=== PATIENT | female | born 1990 | race African-American/Black ===

== ENCOUNTER 2018-01-13 13:38 | Emergency (ER) | payer SELFPAY ==
[~2018-01-13] VITALS: Ht 162.6 cm; Wt 73.0 kg
[2018-01-13 13:48] VITALS: BP 115/89
[2018-01-13] MEDS ORDERED: KETOROLAC 30MG/ML VIAL IV ONE (15:00)
== END 2018-01-13 18:42 | disposition left against medical advice (07) ==
LOC: ER 13:38
DX: R07.89 Other chest pain (principal); Z90.49 Acquired absence of other specified parts of digestive tract
CPT/HCPCS: 93005; 99283